=== PATIENT | male | born 1955 | race Two or more races ===

== ENCOUNTER → 2018-06-22 | Outpatient (CLI) | payer OTHER ==
[~2018-06-22] MED LIST: ASPIR 8181 MG PO; LOSARTAN POTASS25 MG PO; REGADENOSON 0.4 MG/5 ML SYR IV ONE
--- NOTE | 2018-06-22 12:36 | Cardiology Report ---
DATE OF STUDY: June 22, 2018 LEXISCAN NUCLEAR STRESS TEST INDICATIONS: Chest pain. DESCRIPTION OF PROCEDURE: After informed consent, patient was brought to the stress lab. He was given 11 mCi of technetium 99 Myoview, and myocardial perfusion SPECT images were obtained in the horizontal long axis, short axis and vertical long axis views. Subsequently patient was given 0.4 mg Lexiscan over 10 seconds. Patient was given 33 mCi of technetium 99 Myoview intravenously, and myocardial perfusion SPECT images were obtained in the horizontal long axis, short axis and vertical long axis views. Gating images were also obtained. Patient tolerated the procedure without any complications. REPORT: Baseline EKG shows sinus bradycardia at 52 beats per minute, normal axis, normal intervals, repolarization ST-T changes. PARAMETERS 1. Resting heart rate is 56 beats per minute. 2. Maximal heart rate 90 beats per minute. 3. Resting blood pressure 133/97 mmHg. 4. Maximal blood pressure 138/97 mmHg. REASON FOR TERMINATION: Endpoint attained. INTERPRETATION 1. Negative for chest pain. 2. Negative for arrhythmias. 3. Blood pressure response consistent with Lexiscan. 4. No significant ST-T changes seen during Lexiscan infusion compared to baseline. 5. Analysis of SPECT images reveals uniform radioisotope uptake in all segments of the myocardium without any significant perfusion defects. CONCLUSIONS 1. No evidence of significant ischemia or infarction in this study. 2. No wall motion abnormalities. 3. Overall ejection fraction is 67%. Job#: [id number] EV
== END ==
LOC: NM 07:39
DX: R00.2 Palpitations (principal)
CPT/HCPCS: 78452; 93017; A9502; J2785

== ENCOUNTER 2019-01-17 08:36 | Emergency (ER) | payer OTHER ==
[~2019-01-17] VITALS: Ht 177.8 cm; Wt 78.5 kg
[~2019-01-17 08:36] MED LIST changes: -REGADENOSON 0.4 MG/5 ML SYR IV ONE
--- OUTSIDE RECORDS SUMMARY | 2019-01-17 08:38 | XMS REPORT ---
[facility] Address Unknown Phone Unavailable Care Team Providers Care Vector Control Specialist Name Role Phone LUIS MCFARLANE Unavailable Unavailable Problems This patient has no known problems. Allergies, Adverse Reactions, Alerts This patient has no known allergies or adverse reactions. Medications This patient has no known medications. Results Test Description Test Time Test Comments Text Results Atomic Results Result Comments Stress Test - Treadmill ONLY 2018-06-22 12:09:[address] [address] Patient Name : ANGEL ORDOÑEZ MR #: [id number] : 1955 Age/Sex: 63/M Adm Physician : LUIS MCFARLANE MD Admit Date : Location : [place] Room/Bed : REPORT: Cardiology Report DATE OF STUDY: June 22, 2018 LEXISCAN NUCLEAR STRESS TEST INDICATIONS: Chest pain. DESCRIPTION OF PROCEDURE: After informed consent, patient was brought to the stress lab. He was given 11 mCi of technetium 99 Myoview, and myocardial perfusion SPECT images were obtained in the horizontal long axis, short axis and vertical long axis views. Subsequently patient was given 0.4 mg Lexiscan over 10 seconds. Patient was given 33 mCi of technetium 99 Myoview intravenously, and myocardial perfusion SPECT images were obtained in the horizontal long axis, short axis and vertical long axis views. Gating images were also obtained. Patient tolerated the procedure without any complications. REPORT: Baseline EKG shows sinus bradycardia at 52 beats per minute, normal axis, normal intervals, repolarization ST-T changes. PARAMETERS 1. Resting heart rate is 56 beats per minute. 2. Maximal heart rate 90 beats per minute. 3. Resting blood pressure 133/97 mmHg. 4. Maximal blood pressure 138/97 mmHg. REASON FOR TERMINATION: Endpoint attained. INTERPRETATION 1. Negative for chest pain. 2. Negative for arrhythmias. 3. Blood pressure response consistent with Lexiscan. 4. No significant ST-T changes seen during Lexiscan infusion compared to baseline. 5. Analysis of SPECT images reveals uniform radioisotope uptake in all segments of the myocardium without any significant perfusion defects. CONCLUSIONS 1. No evidence of significant ischemia or infarction in this study. 2. No wall motion abnormalities. 3. Overall ejection fraction is 67%. Job#: [id number] EV Signature Date Dictated By: LUIS MCFARLANE MD Transcribed By: PHIL on 06/22/18 <Electronically signed by LUIS MCFARLANE MD><<Signature on File>>06/27/18 [id number] COPY TO:
--- OUTSIDE RECORDS SUMMARY | 2019-01-17 08:38 | XMS REPORT | Summary of Care ---
Author Author AURORA JIMENEZ M.D. Unknown Address [facility] Phone Unavailable Care Team Providers Care Appliance Repair Technician Name Role Phone ADILIA SANTAMARIA MD Unavailable Unavailable ADILIA SANTAMARIA MD Unavailable Unavailable AURORA JIMENEZ MD Unavailable Unavailable Unavailable Unavailable Functional Status Name Dates Details Functional status health issues are not documented Status: Name Dates Details Cognitive status health issues are not documented Status: Problems Name Dates Details Neck pain (723.1, M54.2) Status: Active Tongue lesion (529.8, K14.8) Status: Active Medications Name Dates Details amLODIPine Besylate TABS R.N. Active Ezetimibe TABS * Refills: 0 R.N. Active Fenofibrate CAPS * Refills: 0 R.N. Active Omeprazole TBEC * Refills: 0 R.N. Active Allergies and Adverse Reactions Name Dates Details hydrochlorothiazide (Allergy) Status: Active lovastatin (Allergy) Status: Active Past Medical History Name Dates Details History of hypertension (V12.59, Z86.79) Status: Resolved Procedures Procedure Dates Details Procedures not documented Immunization Name Dates Details Immunizations not documented Family History Name Dates Details No significant family history (V49.89, Z78.9) Comments: Family History Status: Active Social History Name Dates Details - Status: Name Dates Details Never smoker Vital Signs Date Test Result Details [id number] BP Systolic 128 mm[Hg] Status: BP Diastolic 89 mm[Hg] Status: Height 70 in Status: Weight 172 lb Status: Body Mass Index Calculated 24.68 kg/m2 Status: Body Surface Area Calculated 1.96 m2 Status: Heart Rate 87 /min Status: [id number]-[id number]:00 BP Systolic 147 mm[Hg] Status: BP Diastolic 92 mm[Hg] Status: Height 70 in Status: Weight 172.375 lb Status: Body Mass Index Calculated 24.73 kg/m2 Status: Body Surface Area Calculated 1.96 m2 Status: Heart Rate 50 /min Status: Results Date Description Value Details [id number]-Vyt-[id number]:13 CT Neck soft tissue w contrast 06001 Neck soft tissue w contrast CT SEE NOTES Comments: EXAM: Neck soft tissue w contrast CTDATE: 12/21/2018 10:13 CDTINDICATION: - K14.8 Other diseases of tongueCOMPARISON: CT neck 11/10/2018TECHNIQUE: Routine axial images of the neck were obtained following contrastadministration.DISCUSSION:Redemonstration of the well-circumscribed rim-enhancing hypodense lesionmeasuring 10 x 9 mm in the region of the foramen cecum. No masslikeenhancement.No new lesions.Stable appearance of the reminder of the neck since exam from October.IMPRESSION:Hypodense lesion in the region of the foramen cecum most compatible with athyroglossal remnant.--Read by: Laura Ribeiro MDDictated Date/time: 12/21/18 11:10Electronically Signed by: Laura Ribeiro MD 12/21/1912:49FINAL REPORT Plan of Care Name Dates Details Planned Observations Planned Goals not documented Instructions Name Dates Details Instructions not documented Encounters Appointment; AURORA JIEMNEZ M.D. Encounter Diagnosis: Problem not documented On: 19-Dec-2018 10:00 Appointment; AURORA JIMENEZ M.D. Encounter Diagnosis: Problem not documented On: 02-Jan-2019 13:00
[2019-01-17 09:48] VITALS: BP 157/88
== END 2019-01-17 09:53 | disposition home or self-care (01) ==
LOC: FSED 08:36
DX: R50.9 Fever, unspecified (principal); B34.9 Viral infection, unspecified
CPT/HCPCS: 80053; 81003; 85025; 99283

== ENCOUNTER 2019-01-18 16:19 | Emergency (ER) | payer MEDICARE, OTHER ==
[~2019-01-18] VITALS: Ht 177.8 cm; Wt 78.5 kg
[2019-01-18] MEDS ORDERED: IBUPROFEN 200 MG TAB ONE (16:59)
[2019-01-18] MEDS ORDERED: SODIUM CHLORIDE 0.9% 1000ML 1,000 ML IV SCH (17:00)
[2019-01-18] MEDS ORDERED: IBUPROFEN 400 MG TAB PO ONE (17:00)
[2019-01-18] MEDS ORDERED: SODIUM CHLORIDE 0.9% 1000ML 1,000 ML ONE (17:11)
--- NOTE | 2019-01-18 17:29 | Diagnostic Imaging Report ---
EXAMINATION: CXR 2 VIEW - HOPD INDICATION: Fever COMPARISON: None FINDINGS: PA and lateral views TUBES and LINES: None. LUNGS: Mild hyperinflation suggestive of small airways disease. There is no evidence of pneumonia or pulmonary edema. PLEURA: No pleural effusion or pneumothorax. HEART AND MEDIASTINUM: The cardiomediastinal silhouette is unremarkable. There is prominence of the left pericardial fat pad. BONES AND SOFT TISSUES: The bones are diffusely demineralized. No focal osseous lesions. Soft tissues are unremarkable. UPPER ABDOMEN: No free air under the diaphragm. IMPRESSION: Pulmonary hyperinflation suggestive of small airways disease. No acute cardiopulmonary process. Signed by: Dr. Alicia Soto MD on 01/18/2019 5:26 PM
--- NOTE | 2019-01-18 17:37 | Diagnostic Imaging Report ---
Shoulder 2 views CPT code: 80245 Indication: Pain. No trauma history provided Comparison: None. Findings: 2 views of the right shoulder were obtained. Bones are normally aligned. No fractures are identified. There is remodeling of the humeral head. The acromiohumeral interval is narrow. Mild glenohumeral joint narrowing with minimal osteophytic lipping at the inferior aspect. Visualized chest is unremarkable. IMPRESSION: No acute findings. Mild degenerative changes of the shoulder. Remodeling of the humeral head is suggestive of rotator cuff pathology. Signed by: Dr. Alicia Soto MD on 01/18/2019 5:33 PM
[2019-01-18 18:30] VITALS: BP 105/69
== END 2019-01-18 18:35 | disposition home or self-care (01) ==
LOC: FSED 16:19
DX: R50.9 Fever, unspecified (principal); R00.0 Tachycardia, unspecified; B34.9 Viral infection, unspecified; M25.511 Pain in right shoulder
CPT/HCPCS: 71046; 73030; 80048; 80076; 83518; 85025; 86308; 87400; 99284; J7030

== ENCOUNTER 2025-02-19 21:34 | Emergency (ER) | payer MEDICARE, OTHER ==
[~2025-02-19] VITALS: Ht 177.8 cm; Wt 78.5 kg
[2025-02-19 21:48] VITALS: TEMP 98.2
[2025-02-19 22:34] LABS: BASOPHILS % 1.0 % (0.0-1.0); EOSINOPHILS % 2.0 % (0.0-6.0); LYMPHOCYTES % 36.1 % (18.0-39.1); MONOCYTES % 10.6 % (4.4-11.3); NEUTROPHILS % 49.6 % (38.7-80.0); RED CELL DISTRIBUTION WIDTH 14.2 % (11.7-14.4)
[2025-02-19 22:42] LABS: EST GLOMERULAR FILTRATION RATE 56.0 ML/MIN (>=60)
[2025-02-19] MEDS: SODIUM CHLORIDE 0.9% 1000ML 1,000 ML IV STA (23:08)
[2025-02-19] MEDS ORDERED: HYDRALAZINE HCL 20 MG/ML VIAL IV STA (23:26)
[2025-02-19 23:34] VITALS: PULSE 60; RESP 18
[2025-02-20 00:49] VITALS: BP 130/88; PULSE 63; RESP 14; TEMP 97.8; O2SAT 97
== END 2025-02-20 00:58 | disposition home or self-care (01) ==
LOC: ER 21:38
DX: I16.0 Hypertensive urgency (principal); I10 Essential (primary) hypertension; E78.5 Hyperlipidemia, unspecified; I48.91 Unspecified atrial fibrillation; K21.9 Gastro-esophageal reflux disease without esophagitis
CPT/HCPCS: 36415; 70450; 71045; 80053; 82550; 83690; 83880; 84484; 85025; 93005; 99284; J7030